=== PATIENT | male | born 1960 | race Caucasian/White ===

== ENCOUNTER 2016-12-10 11:19 | Emergency (ER) | payer BC ==
[2016-12-10 11:32] VITALS: BP 117/87; PULSE 74; TEMP 98.1; BMI 27.5
--- NOTE | 2016-12-10 11:39 | PDOC ---
History of Present Illness - General Chief Complaint: Bite Stated Complaint: STUNG BY BEE Time Seen by Provider: 12/10/16 11:38 - History of Present Illness Initial Comments: 12/10/16 12:35 56 year old healthy male presenting 40 minutes after a bee sting to his posterior right ear. He came to the ED because he had an anaphylactic reaction to the bee sting 15 years ago. He was stung by a bee this time, or so he believes, and only noticed some mild pain and very mild swelling of the lower portion of the back of his ear. Denies SOB, nausea, vomiting, facial swelling, or tongue swelling. 12/10/16 12:41 Past History - Past Medical History Allergies/Adverse Reactions: Allergies Allergy/AdvReac Type Severity Reaction Status Date / Time bee venom protein (honey bee) Allergy Difficulty Verified 12/10/16 11:29 Breathing Home Medications: Ambulatory Orders Epinephrine [Adrenaclick] 0.3 mg IJ ONCE PRN #1 auto.injct 12/10/16 Prednisone [Prednisone 50 MG TABLETS] 50 mg PO DAILY #4 tablet 12/10/16 - Psycho/Social/Smoking Cessation Hx Anxiety: No Suicidal Ideation: No Smoking History: Never smoked Have you smoked in the past 12 months: No Information on smoking cessation initiated: No Hx Alcohol Use: No Drug/Substance Use Hx: No Substance Use Type: None Review of Systems - Review of Systems Constitutional: No: Chills, Diaphoresis, Fever HEENTM: No: Blurred Vision, Tearing, Recent change in vision Respiratory: No: Cough, Shortness of Breath, SOB with Exertion Cardiac (ROS): No: Chest Pain, Edema ABD/GI: No: Abdominal Distended, Constipated, Diarrhea, Nausea, Vomiting : No: Burning, Dysuria, Discharge Musculoskeletal: No: Back Pain, Joint Pain Integumentary: Yes: Lesions, Lumps. No: Bruising, Erythema, Pruritus, Rash Neurological: No: Headache, Numbness, Paresthesia *Physical Exam - Vital Signs Last Vital Signs Temp Pulse Resp BP Pulse Ox 98.1 F 74 18 117/87 100 12/10/16 11:29 12/10/16 11:29 12/10/16 11:29 12/10/16 11:29 12/10/16 11:29 - Physical Exam General Appearance: Yes: Nourished, Appropriately Dressed. No: Apparent Distress HEENT: positive: EOMI, LISETTE, Normal ENT Inspection, Pharynx Normal, Other (5mm in diameter area of swellign behind his right tragus.). negative: Photophobia, Muffled/Hoarse voice, Pharyngeal Erythema, Nasal Congestion, Rhinorrhea Neck: positive: Trachea midline, Normal Thyroid, Supple. negative: Tender, Rigid Respiratory/Chest: positive: Lungs Clear, Normal Breath Sounds. negative: Chest Tender, Respiratory Distress, Accessory Muscle Use Cardiovascular: positive: Regular Rhythm, Regular Rate, S1, S2. negative: Edema , Murmur Gastrointestinal/Abdominal: positive: Normal Bowel Sounds, Flat, Soft. 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 He was given one dose of prednisone 60 in the ED without abnormal resposne and will be sent home with adrenaline autoclick pen and 4 more days of prednisone 50. VSS throughout admisison with repeat pulmonary exam clear and no increased swelling of sting area. 12/10/16 12:36 12/10/16 12:44 12/10/16 12:50 *DC/Admit/Observation/Transfer Diagnosis at time of Disposition: Bee sting - Discharge Dispostion Disposition: HOME Condition at time of disposition: Improved Admit: No - Prescriptions Prescriptions: Prednisone [Prednisone 50 MG TABLETS] 50 mg PO DAILY #4 tablet - Patient Instructions Printed Discharge Instructions: How to Care for an Insect Bite or Sting Additional Instructions: You were seen for a suspected bee sting. We do not believe that you had an allergic reaction to your bee sting. Because of your reaction to insect stings in the past we are sending you home with a prescription of 4 more days of prednisone to be safe. We also sent you home with an adrenaline auto injector incase you are stung by a bee and have facial swelling or trouble breathing. Please follow up with your primary care physician within a week. - Attestations Physician Attestion: I, Dr. Ny Aldana, attest that this document has been prepared under my direction and personally reviewed by me in its entirety. I further attest, that it accurately reflects all work, treatment, procedures and medical decision -making performed by me. 12/10/16 12:54
[2016-12-10] MEDS ORDERED: predniSONE 20 MG TABLET (UD) PO ONE (12:24)
--- NOTE | 2016-12-10 12:24 | PDOC ---
Attending Attestation - Resident Resident Name: Ny Aldana - ED Attending Attestation I have performed the following: I have examined & evaluated the patient, The case was reviewed & discussed with the resident, I agree w/resident's findings & plan, Exceptions are as noted - HPI HPI: 12/10/16 12:23 56-year-old male with no past medical history but be ALLERGIES presents with a bee sting to the right tragus. The patient was outdoors when he felt the sting approximately 45 minutes prior to arrival. Stated he felt some itchiness but denies any other symptoms. Denies chest pain short of breath or facial swelling. Patient came in because he had has prior anaphylaxis in the setting of bee sting. Denies any other symptoms at this time. He was concerning came to the ED. - Physicial Exam PE: 12/10/16 12:23 GENERAL: Awake, alert, and fully oriented, in no acute distress. HEAD: No signs of trauma EYES: PERRLA, EOMI, sclera anicteric, conjunctiva clear ENT: Auricles normal inspection, hearing grossly normal, nares patent, oropharynx clear without exudates. NECK: Normal ROM, supple, no lymphadenopathy, JVD, or masses EXTREMITIES: Normal range of motion, no edema. No clubbing or cyanosis. No cords, erythema, or tenderness NEUROLOGICAL: Cranial nerves II through XII grossly intact. Normal speech, normal gait SKIN: Warm, Dry, normal turgor, no rashes or lesions noted. EAR: slight erythema on Right tragus - Medical Decision Making 12/10/16 12:24 Vital Signs Temp Pulse Resp BP Pulse Ox 98.1 F 74 18 117/87 100 12/10/16 11:29 12/10/16 11:29 12/10/16 11:29 12/10/16 11:29 12/10/16 11:29 There are no signs of anaphylaxis. Patient is otherwise well-appearing. Given his history of anaphylaxis to bee stings, we will prescribe prednisone and adrenaline click. Patient will take Benadryl [id number] as needed. Follow- up with PMD. Return precautions given.
[2016-12-10] MEDS ORDERED: predniSONE 20 MG TABLET (UD) ONE (12:31)
== END 2016-12-10 13:01 | disposition home or self-care (01) ==
LOC: JER 11:19
DX: T63.441A Toxic effect of venom of bees, accidental (unintentional), initial encounter (principal); Y92.9 Unspecified place or not applicable
CPT/HCPCS: 99282-25

== ENCOUNTER 2018-12-20 09:18 | Inpatient (IN) | payer BC ==
[2018-12-20] MEDS ORDERED: ACETAMINOPHEN 1000 MG/100 ML VIAL (NON FORMULARY) IVPB ONE (10:14)
[2018-12-20] MEDS ORDERED: SODIUM CHLORIDE 1,000 ML IV STA ×3 (10:14→22:37)
[2018-12-20] MEDS ORDERED: ACETAMINOPHEN INJECTION 100 ML IVPB ONE (10:45)
[2018-12-20 11:05] LABS: BASO % 0.2 % (0-2.0); EOS % 0.7 % (0-4.5); HEMATOCRIT 41.3 % (35.4-49); HEMOGLOBIN 14.3 GM/dL (11.7-16.9); LYMPH % 8.2 % (8-40); MCH 32.7 pg (25.7-33.7); MCHC 34.5 g/dl (32.0-35.9); MEAN CELL VOLUME 94.8 fl (80-96); MEAN PLT VOLUME 9.1 fl (7.5-11.1); MONO % 5.9 % (3.8-10.2); PLATELET COUNT 190 K/MM3 (134-434); RBC 4.36 M/mm3 (4.00-5.60); RDW 13.2 % (11.9-15.9); WHITE BLOOD COUNT 9.1 K/mm3 (4.0-10.0)
[2018-12-20 11:10] LABS: EPI CELLS 0.7 /HPF (0-5/HPF); HYALINE CASTS 2 /lpf (0-8); URINE APPEARANCE CLEAR; URINE BACTERIA 2.4 /hpf (NEGATIVE); URINE BILIRUBIN NEGATIVE (NEGATIVE); URINE COLOR YELLOW; URINE GLUCOSE (UA) NEGATIVE (NEGATIVE); URINE KETONE NEGATIVE (NEGATIVE); URINE LEUK ESTERASE NEGATIVE (NEGATIVE); URINE NITRITE NEGATIVE (NEGATIVE); URINE PROTEIN NEGATIVE (NEGATIVE); URINE RBC 2 /hpf (0-4); URINE UROBILINOGEN 0.2 mg/dL (0.2-1.0); URINE WBC 1 /hpf (0-5)
--- NOTE | 2018-12-20 11:21 | PDOC ---
History of Present Illness - General History Source: Patient Exam Limitations: No Limitations <Lisha Borrego - Last Filed: 12/20/18 16:26> <SinghIvette - Last Filed: 12/21/18 15:27> - General Chief Complaint: Pain Stated Complaint: Pain Time Seen by Provider: 12/20/18 09:43 Past History - Travel Traveled outside of the country in the last 30 days: No Close contact w/someone who was outside of country & ill: No - Past Medical History COPD: No Other medical history: RT KNEE ARTHRITIS - Immunization History Immunization Up to Date: Yes - Suicide/Smoking/Psychosocial Hx Smoking History: Never smoked Have you smoked in the past 12 months: No Information on smoking cessation initiated: No Hx Alcohol Use: No Drug/Substance Use Hx: No Substance Use Type: None <Danielle Borregoca - Last Filed: 12/20/18 16:26> <Ivette Singh - Last Filed: 12/21/18 15:27> - Past Medical History Allergies/Adverse Reactions: Allergies Allergy/AdvReac Type Severity Reaction Status Date / Time bee venom protein (honey bee) Allergy Difficulty Verified 12/20/18 09:25 Breathing Home Medications: Ambulatory Orders Epinephrine [Adrenaclick] 0.3 mg IJ ONCE PRN #1 auto.injct 12/10/16 Review of Systems - Review of Systems Able to Perform ROS?: Yes Comments:: 12/20/18 10:08 CONSTITUTIONAL: Absent: fever, chills, diaphoresis, generalized weakness, malaise, loss of appetite HEENT: Absent: rhinorrhea, nasal congestion, throat pain, throat swelling, difficulty swallowing, mouth swelling, ear pain, eye pain, visual Changes CARDIOVASCULAR: Absent: chest pain, loss of consciousness, palpitations, irregular heart rate, peripheral edema RESPIRATORY: Absent: cough, shortness of breath, dyspnea with exertion, orthopnea, wheezing, stridor, hemoptysis GASTROINTESTINAL: Present: lower abdominal pain, constipation Absent: abdominal distension, nausea , vomiting, diarrhea, melena, hematochezia GENITOURINARY: Present: dysuria Absent: frequency, urgency, hesitancy, hematuria, flank pain, genital pain MUSCULOSKELETAL: Absent: myalgia, arthralgia, joint swelling SKIN: Absent: rash, itching, pallor HEMATOLOGIC/IMMUNOLOGIC: Absent: easy bleeding, easy bruising, lymphadenopathy, frequent infections ENDOCRINE: Absent: unexplained weight gain, unexplained weight loss, heat intolerance, cold intolerance NEUROLOGIC: Absent: headache, focal weakness or paresthesias, dizziness, unsteady gait, seizure, mental status changes, bladder or bowel incontinence PSYCHIATRIC: Absent: anxiety, depression, suicidal or homicidal ideation, hallucinations. Is the patient limited Thai proficient: No <Lisha Borrego - Last Filed: 12/20/18 16:26> *Physical Exam - Vital Signs Last Vital Signs Temp Pulse Resp BP Pulse Ox 98.5 F 66 16 132/81 99 12/20/18 09:27 12/20/18 09:27 12/20/18 09:27 12/20/18 09:27 12/20/18 09:27 - Physical Exam Comments: 12/20/18 10:09 GENERAL: Well developed, well nourished. Awake and alert. No acute distress. HEENT: Normocephalic, atraumatic. PERRLA, EOMI. No conjunctival pallor. Sclera are non- icteric. Moist mucous membranes. Oropharynx is clear. NECK: Supple. Full ROM. No JVD. Carotid pulses 2+ and symmetric, without bruits. No thyromegaly. No lymphadenopathy. CARDIOVASCULAR: Regular rate and rhythm. No murmurs, rubs, or gallops. Distal pulses are 2+ and symmetric. PULMONARY: No evidence of respiratory distress. Lungs clear to auscultation bilaterally. No wheezing, rales or rhonchi. ABDOMINAL: TTP of the lower abdomen with increased Soft. Non-tender. Non-distended. No rebound or guarding. No organomegaly. Normoactive bowel sounds. MUSCULOSKELETAL Normal range of motion at all joints. No bony deformities or tenderness. No CVA tenderness. EXTREMITIES: No cyanosis. No clubbing. No edema. No calf tenderness. SKIN: Warm and dry. Normal capillary refill. No rashes. No jaundice. NEUROLOGICAL: Alert, awake, appropriate. Cranial nerves 2-12 intact. No deficits to light touch and temperature in face, upper extremities and lower extremities. No motor deficits in the in face, upper extremities and lower extremities. Normoreflexic in the upper and lower extremities. Normal speech. Toes are down- going bilaterally. Gait is normal without ataxia. PSYCHIATRIC: Cooperative. Good eye contact. Appropriate mood and affect. <Danielle Borregoca - Last Filed: 12/20/18 16:26> - Vital Signs Last Vital Signs Temp Pulse Resp BP Pulse Ox 98.5 F 66 16 132/81 99 12/20/18 09:27 12/20/18 09:27 12/20/18 09:27 12/20/18 09:27 12/20/18 09:27 <Ivette Singh - Last Filed: 12/21/18 15:27> ED Treatment Course - LABORATORY CBC & Chemistry Diagram: 12/20/18 10:00 12/20/18 10:00 <Maryam Borregoecca - Last Filed: 12/20/18 16:26> - LABORATORY CBC & Chemistry Diagram: 12/21/18 07:10 12/21/18 07:10 - ADDITIONAL ORDERS Additional order review: Laboratory Results 12/20/18 12/20/18 12/20/18 10:00 10:00 10:00 PT with INR 11.90 INR 1.01 Sodium 140 Potassium 4.1 Chloride 105 Carbon Dioxide 30 Anion Gap 5 L BUN 19.9 H Creatinine 0.8 Est GFR (CKD-EPI)AfAm 114.93 Est GFR (CKD-EPI)NonAf 99.16 Random Glucose 96 Calcium 9.2 Total Bilirubin 0.7 AST 24 ALT 38 Alkaline Phosphatase 75 Total Protein 7.1 Albumin 4.2 Urine Color Yellow Urine Appearance Clear Urine pH 5.0 Ur Specific [place] 1.026 Urine Protein Negative Urine Glucose (UA) Negative Urine Ketones Negative Urine Blood Trace Urine Nitrite Negative Urine Bilirubin Negative Urine Urobilinogen 0.2 Ur Leukocyte Esterase Negative Urine WBC (Auto) 1 Urine RBC (Auto) 2 Urine Casts (Auto) 2 U Epithel Cells (Auto) 0.7 Urine Bacteria (Auto) 2.4 12/20/18 10:00 RBC 4.36 MCV 94.8 MCHC 34.5 RDW 13.2 MPV 9.1 Neutrophils % 85.0 H Lymphocytes % 8.2 Monocytes % 5.9 Eosinophils % 0.7 Basophils % 0.2 - Medications Given in the ED: ED Medications Discontinued Medications Generic Name Dose Route Start Last Admin Trade Name Freq PRN Reason Stop Dose Admin Acetaminophen 1,000 mg 12/20/18 10:14 12/20/18 10:54 Ofirmev Injection - IVPB 12/20/18 10:15 1,000 mg ONCE ONE Administration Sodium Chloride 1,000 mls @ 1,000 mls/hr 12/20/18 10:14 12/20/18 10:54 Normal Saline - IV 12/20/18 11:13 1,000 mls/hr ASDIR STA Administration <Ivette Singh - Last Filed: 12/21/18 15:27> Medical Decision Making - Medical Decision Making 12/20/18 16:19 The patient is a 58 y/o M with PMH of bladder divertiula with repair, presents to the ER with one day of lower abdominal pain, urinary discomfort and constipation. He states that he has been straining to have a bowel movement; but has been unable to have one since yesterday morning. e also states that it hurts to urinate. He states is a family history of diverticulitis. Denies fevers , chills, nausea, vomiting, difficulty breathing, chest pain, frequency, urgency and hematuria A/P: diverticulitis LLQ pain and suprapubic pain on exam labs, CTAP, urine ordered Labs grossly unremarkable CTAP shows diverticulitis with colitis Levo/flagyl ordered for abx Admit to hospitalists Sign out given to Dr. Vanegas <Lisha Borrego - Last Filed: 12/20/18 16:26> - Medical Decision Making 12/20/18 12:55 The patient was seen and evaluated in conjunction with midlevel provider under my direct supervision, ancillary studies were reviewed. I agree with the plan as outlined PHYLLIS Borrego. HPI, workup/dispo as outlined. VS reviewed, wnl. labs and lytes wnl. CT a/p +diverticulitis meds, reassess admit for acute diverticulitis 12/21/18 15:26 <Ivette Singh - Last Filed: 12/21/18 15:27> *DC/Admit/Observation/Transfer - Discharge Dispostion Decision to Admit order: Yes <Lisha Borrego - Last Filed: 12/20/18 16:26> <Ivette Singh - Last Filed: 12/21/18 15:27> Diagnosis at time of Disposition: Diverticulitis - Discharge Dispostion Disposition: HOME Condition at time of disposition: Stable
[2018-12-20 11:26] LABS: INR 1.01 (0.83-1.09); PROTHROMBIN TIME (PATIENT) 11.9 SEC (9.7-13.0)
[2018-12-20 11:27] LABS: ALBUMIN 4.2 g/dl (3.4-5.0); BILIRUBIN,TOTAL 0.7 mg/dL (0.2-1); BLOOD UREA NITROGEN 19.9 mg/dL (7-18); CALCIUM 9.2 mg/dL (8.5-10.1); CREATININE 0.8 mg/dL (0.55-1.3); POTASSIUM 4.1 mmol/L (3.5-5.1); TOT PROT 7.1 g/dl (6.4-8.2)
[2018-12-20] MEDS ORDERED: morphine CARPU-JECT 2 MG/1 ML DISP.SYRIN IVPUSH ONE (16:31)
[2018-12-20] MEDS ORDERED: SODIUM CHLORIDE 1,000 ML IV SCH (17:00)
[2018-12-20] MEDS ORDERED: MORPHINE SULFATE 2 MG/ML VIAL ONE (17:09)
[2018-12-20] MEDS ORDERED: CEFTRIAXONE 2 GM-D5W BAG 2 GM/50 ML BAG IVPB SCH (18:15)
[2018-12-20] MEDS ORDERED: CEFTRIAXONE 1 GM in DEXTROSE 5%-WATER 100 ML IVPB SCH (18:30)
--- NOTE | 2018-12-20 18:30 | PN ---
Teaching Attending Note Name of Resident: Derek Brooks ATTENDING PHYSICIAN STATEMENT I saw and evaluated the patient. I reviewed the resident's note and discussed the case with the resident. I agree with the resident's findings and plan as documented. SUBJECTIVE: CC: Abd pain HPI: 58 y/o man with h/o hemorrhoids, colonic polyps, bladder polyp removal with reconstruction , UTI, OA in knee , who presented with lower abd pain since this am . This Am, he developed lower abd pain while having a BM. stool was hard and last BM was 2 days ago. he felt pressure in suprapubic area as well and urination was difficult but no dysuria. while wiping himself after BM he noticed few drops of blood. He denies any fever or chills, but felt very cold in ER. He denies any diarrhea. He has a h/o polyps removed from his colon ( total of 7) , last colonoscopy was in June and was told it was Nl. Dr. Baker is his GI. He denies diverticulitis before. denies chronic h/o constipation OBJECTIVE: NAD. pleasant and cooperative HEENT: dry MM. No facial droop. no LAP in neck . slightly erythematous oropharynx CV: RRR, no MRG Lungs: CTAB Ext : No edema or erythema. R knee tenderness. No fungal infection in feet. Abd: TTP in suprapubic area, LLQ and RLQ. no rebound tenderness or guarding. hypoactive BS. Neuro : EOMI, round equal pupils, reactive to light , no facial droop. tongue and uvula at mid line. strength 5/5 in upper and lower extremities proximally and distally. Rectal: deferred as pt is in [place]. ASSESSMENT AND PLAN: 58 y/o man with h/o hemorrhoids, colonic polyps, bladder polyp removal with reconstruction , UTI, OA in knee , who presented with lower abd pain since morning of admission. He was found to have acute sigmoid diverticulitis. 1- Sigmoid diverticulitis: no abscess formation, and no microperforation. No signs of sepsis as of now. - received Levaquin and flagyl in ER - will start ceftriaxone and flagyl - order Lactic acid - IVF with d5NS - NPO for now , will advance later - No Drainable collection seen on CT. if condition changes, might need surgical eval - monitor closely 2- L adrenal gland thickening. Unchanged form prior exam. follow as out pt 3- L lung base nodule, slightly larger than before. f/u as out pt 5- DVT PX : lovenox
--- NOTE | 2018-12-20 18:32 | HP ---
CHIEF COMPLAINT: Lower abdominal pain PCP: Dr. kSaggs HISTORY OF PRESENT ILLNESS: The patient is a 58 year old male with PMH significant for hemorrhoids (30 years) and colonic polyps (5 colonoscopies in the past 16 years, 7 polyps removed), and PSH significant for 2x bladder reconstructive surgery in 2005. He presented to the ER from home with complaints of pain in his suprapubic region since 2AM, sudden in onset. He described it as 8/10 in intensity and sharp in quality, constant in nature but varying in intensity (between 3/10 to 8/10). The pain does not radiate anywhere , is aggravated by urination, and there were no alleviating factors noted. Associated symptoms include constipation and dysuria. His last normal bowel movement was 2 days ago, which was soft and brown, and he normally has soft, daily bowel movements. He had one painful bowel movement after the pain started this morning, described as very hard and small in quantity, with no blood noted mixed with stool, but blood noticed upon wiping. He also complains of associated dysuria since the pain began. There is no burning micturation and no pain in the urethra, but instead he feels pain in the suprapubic region, described as originating from the bladder. ER course was notable for: (1) CT AP: sigmoid diverticulitis with edema and phlegmonous change, no abcess. Mild asc & transverse colon diverticulosis (2) Levaquin 750mg and Flagyl 500mg (3) Morphine 2mg IVPUSH (4) N/S @75 Recent Travel: Denies PAST MEDICAL HISTORY: Hemorrhoids (30 years) Colonic polyps, 5 colonoscopies in the past 16 years (last one in June), 7 polyps removed. His GI is doctor Olivia, he has a colonoscopy every 3 years PAST SURGICAL HISTORY: 2x bladder reconstructive surgery in 2006, removal of diverticulum. Dr. Linton is his Urologist. Social History: Smoking: None Alcohol: Socially, wine and beer, few units Drugs: None Work: Wash Worker Family History: 3 Maternal Uncles and Mother suffered from Diverticulitis Father from Lung [place] (was a heavy smoker) Brother of a stroke (age 53) Allergies bee venom protein (honey bee) Allergy (Verified 12/20/18 09:25) Difficulty Breathing HOME MEDICATIONS: Home Medications Medication Instructions Recorded Epinephrine [Adrenaclick] 0.3 mg IJ ONCE PRN #1 auto.injct 12/10/16 Prednisone [Prednisone 50 MG 50 mg PO DAILY #4 tablet 12/10/16 TABLETS] REVIEW OF SYSTEMS CONSTITUTIONAL: Absent: fever, chills, diaphoresis, generalized weakness, malaise, loss of appetite, weight change HEENT: Absent: rhinorrhea, nasal congestion, throat pain, throat swelling, difficulty swallowing, mouth swelling, ear pain, eye pain, visual changes CARDIOVASCULAR: Absent: chest pain, syncope, palpitations, irregular heart rate, lightheadedness , peripheral edema RESPIRATORY: Absent: cough, shortness of breath, dyspnea with exertion, orthopnea, wheezing, stridor, hemoptysis GASTROINTESTINAL:abdominal pain, constipation, hematochezia Absent: abdominal distension, nausea, vomiting, diarrhea, melena GENITOURINARY: dysuria Absent: frequency, urgency, hesitancy, hematuria, flank pain, genital pain MUSCULOSKELETAL: Absent: myalgia, arthralgia, joint swelling, back pain, neck pain SKIN: Absent: rash, itching, pallor HEMATOLOGIC/IMMUNOLOGIC: Absent: easy bleeding, easy bruising, lymphadenopathy, frequent infections ENDOCRINE: Absent: unexplained weight gain, unexplained weight loss, heat intolerance, cold intolerance NEUROLOGIC: Absent: headache, focal weakness or paresthesias, dizziness, unsteady gait, seizure, mental status changes, bladder or bowel incontinence PSYCHIATRIC: Absent: anxiety, depression, suicidal or homicidal ideation, hallucinations. PHYSICAL EXAMINATION Vital Signs - 24 hr 12/20/18 12/20/18 09:27 17:38 Temperature 98.5 F 98.2 F Pulse Rate 66 Pulse Rate [ 83 Left] Respiratory 16 16 Rate Blood Pressure 132/81 Blood Pressure 103/61 [Right] O2 Sat by Pulse 99 98 Oximetry (%) GENERAL: Awake, alert, and fully oriented, in no acute distress. HEAD: Normal with no signs of trauma. EYES: Pupils equal, round and reactive to light, extraocular movements intact, sclera anicteric, conjunctiva clear. No lid lag. EARS, NOSE, THROAT: Ears normal, nares patent, oropharynx clear without exudates. Moist mucous membranes. NECK: Normal range of motion, supple without lymphadenopathy, JVD, or masses. LUNGS: Breath sounds equal, clear to auscultation bilaterally. No wheezes, and no crackles. No accessory muscle use. HEART: Regular rate and rhythm, normal S1 and S2 without murmur, rub or gallop. ABDOMEN: Soft, mild tenderness in suprapubic region, no CVA tenderness, not distended, normoactive bowel sounds, no guarding, no rebound, no masses MUSCULOSKELETAL: Normal range of motion at all joints. No bony deformities or tenderness. No CVA tenderness. UPPER EXTREMITIES: 2+ pulses, warm, well-perfused. No cyanosis. No clubbing. No peripheral edema. LOWER EXTREMITIES: 2+ pulses, warm, well-perfused. No calf tenderness. No peripheral edema. NEUROLOGICAL: Cranial nerves II-XII intact. Normal speech. Normal gait. PSYCHIATRIC: Cooperative. Good eye contact. Appropriate mood and affect. SKIN: Warm, dry, normal turgor, no rashes or lesions noted, normal capillary refill. Laboratory Results - last 24 hr 12/20/18 12/20/18 12/20/18 10:00 10:00 10:00 WBC 9.1 RBC 4.36 Hgb 14.3 Hct 41.3 MCV 94.8 MCH 32.7 MCHC 34.5 RDW 13.2 Plt Count 190 MPV 9.1 Absolute Neuts (auto) 7.8 Neutrophils % 85.0 H Lymphocytes % 8.2 Monocytes % 5.9 Eosinophils % 0.7 Basophils % 0.2 Nucleated RBC % 0 PT with INR 11.90 INR 1.01 Sodium 140 Potassium 4.1 Chloride 105 Carbon Dioxide 30 Anion Gap 5 L BUN 19.9 H Creatinine 0.8 Est GFR (CKD-EPI)AfAm 114.93 Est GFR (CKD-EPI)NonAf 99.16 Random Glucose 96 Calcium 9.2 Total Bilirubin 0.7 AST 24 ALT 38 Alkaline Phosphatase 75 Total Protein 7.1 Albumin 4.2 Urine Color Urine Appearance Urine pH Ur Specific [place] Urine Protein Urine Glucose (UA) Urine Ketones Urine Blood Urine Nitrite Urine Bilirubin Urine Urobilinogen Ur Leukocyte Esterase Urine WBC (Auto) Urine RBC (Auto) Urine Casts (Auto) U Epithel Cells (Auto) Urine Bacteria (Auto) 12/20/18 10:00 WBC RBC Hgb Hct MCV MCH MCHC RDW Plt Count MPV Absolute Neuts (auto) Neutrophils % Lymphocytes % Monocytes % Eosinophils % Basophils % Nucleated RBC % PT with INR INR Sodium Potassium Chloride Carbon Dioxide Anion Gap BUN Creatinine Est GFR (CKD-EPI)AfAm Est GFR (CKD-EPI)NonAf Random Glucose Calcium Total Bilirubin AST ALT Alkaline Phosphatase Total Protein Albumin Urine Color Yellow Urine Appearance Clear Urine pH 5.0 Ur Specific [place] 1.026 Urine Protein Negative Urine Glucose (UA) Negative Urine Ketones Negative Urine Blood Trace Urine Nitrite Negative Urine Bilirubin Negative Urine Urobilinogen 0.2 Ur Leukocyte Esterase Negative Urine WBC (Auto) 1 Urine RBC (Auto) 2 Urine Casts (Auto) 2 U Epithel Cells (Auto) 0.7 Urine Bacteria (Auto) 2.4 ASSESSMENT/PLAN: #Diverticulitis - Ceftriaxone 1gm daily (because of severity (edema and phlegmonous changes) and Flagyl 500mg Q6 (to cover anaerobes) - Lactic Acid - Morphine 2mg Q6. Had some discomfort after first dose, would warn patient before dose and monitor response - Hydrate with D5N #Hx of Polyps - Will continue outpatient F/U with Dr. Baker. No indication for GI consultation at this time. #Hematochezia - Likely due to passage of hard stools, will monitor #FEN - N/S @75 - NPO to rest colon, will advance to clears tomorrow if symptoms improve #DVT PE - Lovenox 40mg Visit type - Emergency Visit Emergency Visit: Yes ED Registration Date: 12/20/18 Care time: The patient presented to the Emergency Department on the above date and was hospitalized for further evaluation of their emergent condition. - New Patient This patient is new to me today: Yes Date on this admission: 12/21/18 - Critical Care Critical Care patient: No ATTENDING PHYSICIAN STATEMENT I saw and evaluated the patient. I reviewed the resident's note and discussed the case with the resident. I agree with the resident's findings and plan as documented. SUBJECTIVE: OBJECTIVE: ASSESSMENT AND PLAN:
[2018-12-20] MEDS ORDERED: MORPHINE SULFATE 2 MG/ML VIAL IVPUSH PRN (18:33)
[2018-12-20] MEDS ORDERED: DEXTROSE 5%-NORMAL SALINE 1,000 ML IV SCH ×2 (18:45→18:53)
--- NOTE | 2018-12-20 20:14 | CON.GI ---
Consult Consult Specialty:: GI: For Dr. Baker who resumes care 12/21 Referred by:: Hospitalist Service Reason for Consultation:: Diverticulitis - History of Present Illness Chief Complaint: Abdominal pain History of Present Illness: 58M admitted through [facility] ER for evaluation of abdominal pain. Mr. Fajardo explains that he was awoken by lower abdominal discomfort around 2AM this morning. He went to bed but in the monring the pain became persistent and more intense, accompanied by diminished appetite and chills prompting his ER eval. In the ER he was noted to be afebrile with normal WBC. CT scan of the abdomen and pelvis with IV contrast revealed sigmoid diverticulitis with phlegmonous changes around the sigmoid. There was a lung nodule noted as well. His temp was 100.3 orally during my exam this evening. he is a patient of Dr. Baker's and Micah explains that Dr. Baker performed colonoscopy on him this past June revealing diverticulosis. he had a prior colonoscopy and he remembers 7 polyps being removed. He denies rectal bleeding and his last bowel movement was 2 days prior and strained. There is no family history of colorectal cancer or other GI malignancy. he was given levaquin and ? ceftriaxone in the ED - History Source History Provided By: Patient, Medical Record - Past Medical History Gastrointestinal: Yes: Diverticulosis, Other (Colon polyps) Musculoskeletal: Yes: Osteoarthritis - Past Surgical History Additional Surgical History: right knee meniscus repair, resection of bladder diverticulum - Alcohol/Substance Use Hx Alcohol Use: No - Smoking History Smoking history: Never smoked Have you smoked in the past 12 months: No - Social History Usual Living Arrangement: With Significant Other ADL: Independent Occupation: Mental [employer] Place of : [facility] History of Recent Travel: No Home Medications - Allergies Allergies/Adverse Reactions: Allergies Allergy/AdvReac Type Severity Reaction Status Date / Time bee venom protein (honey bee) Allergy Difficulty Verified 12/20/18 09:25 Breathing - Home Medications Home Medications: Ambulatory Orders Epinephrine [Adrenaclick] 0.3 mg IJ ONCE PRN #1 auto.injct 12/10/16 Family Disease History - Family Disease History Family Disease History: Other: Father (: 42: Lung Ca (smoker)), Mother ( : 66: complications from CKD), Brother (3, 1 age 53: CVA), Sister (1, alive BCA) Physical Exam-GI Vital Signs: Vital Signs Temperature 100.3 F orally 12/20/18 17:38 Pulse Rate 83 12/20/18 17:38 Respiratory Rate 16 12/20/18 17:38 Blood Pressure 103/61 12/20/18 17:38 O2 Sat by Pulse Oximetry (%) 98 12/20/18 17:38 Constitutional: Yes: Calm Eyes: No: Sclera Icterus Cardiovascular: Yes: Regular Rate and Rhythm Respiratory: Yes: CTA Bilaterally Gastrointestinal Inspection: No: Distention, Scars ...Auscultate: Yes: Normoactive Bowel Sounds ...Palpate: Yes: Guarding (involuntary guarding), Soft, Tenderness (TTP LLQ) ...Percussion: No: Tympanitic Edema: No (No LE edema) Neurological: Yes: Alert Labs: CBC, BMP 12/20/18 10:00 12/20/18 10:00 INR, PTT INR 1.01 (0.83-1.09) 12/20/18 10:00 Imaging - Results Cat Scan: Report Reviewed, Image Reviewed Problem List - Problems (1) Diverticulitis Assessment/Plan: 1st episode of acute uncomplicated sigmoid diverticulitis Significant TTP noted on my exam this evening Advise: NPO IV hydration IV Abx. if continuing fevers, rising WBC, consider blood cultures, ID consult and escalation of antibiotic coverage Surgical consult to follow Added CRP to AM labs Code(s): K57.92 - DVTRCLI OF INTEST, PART UNSP, W/O PERF OR ABSCESS W/O BLEED
[2018-12-20 20:55] VITALS: BMI 29.3
[2018-12-21] MEDS ORDERED: CEFTRIAXONE 1 GM in DEXTROSE 5%-WATER - 50 ML IVPB SCH (00:25)
[2018-12-21] MEDS ORDERED: cefTRIAXone SODIUM 1 GM VIAL ONE ×2 (00:27→09:51)
[2018-12-21] MEDS ORDERED: DEXTROSE 5%-WATER - 50 ML IVPB ONE ×2 (00:27→09:51)
[2018-12-21] MEDS: SODIUM CHLORIDE 1,000 ML IV SCH ×2 (01:34→17:05)
[2018-12-21 08:07] LABS: BASO % 0.1 % (0-2.0); EOS % 0.2 % (0-4.5); HEMOGLOBIN 12.6 GM/dL (11.7-16.9); MCHC 35.1 g/dl (32.0-35.9); MEAN CELL VOLUME 94.1 fl (80-96); MEAN PLT VOLUME 9.2 fl (7.5-11.1); MONO % 3.9 % (3.8-10.2); NEUT % 87.8 % (42.8-82.8); PLATELET COUNT 165 K/MM3 (134-434); RBC 3.82 M/mm3 (4.00-5.60); RDW 12.6 % (11.9-15.9); WHITE BLOOD COUNT 10.7 K/mm3 (4.0-10.0)
[2018-12-21 08:53] LABS: ALBUMIN 3.2 g/dl (3.4-5.0); BILIRUBIN,TOTAL 1.3 mg/dL (0.2-1); BLOOD UREA NITROGEN 10.4 mg/dL (7-18); CALCIUM 8.3 mg/dL (8.5-10.1); CREATININE 0.8 mg/dL (0.55-1.3); POTASSIUM 3.6 mmol/L (3.5-5.1); TOT PROT 5.9 g/dl (6.4-8.2)
[2018-12-21] MEDS: ENOXAPARIN NA (PORCINE) 40 MG/0.4 ML DISP.SYRIN SQ SCH (09:59)
[2018-12-21] MEDS ORDERED: CEFTRIAXONE 1 GM in DEXTROSE 5%-WATER - 100 ML IVPB SCH (10:00)
--- NOTE | 2018-12-21 14:41 | PN ---
Physical Exam: SUBJECTIVE: Patient seen and examined by the bedside. AOx3, in no acute distress. OBJECTIVE: Vital Signs Period Temp Pulse Resp BP Sys/Colon Pulse Ox Last 24 Hr 98.2 F-100.3 F 79-83 16-20 103-121/53-61 98-98 GENERAL: Awake, alert, and fully oriented, in no acute distress. HEAD: Normal with no signs of trauma. EYES: Pupils equal, round and reactive to light, extraocular movements intact, sclera anicteric, conjunctiva clear. No lid lag. EARS, NOSE, THROAT: Ears normal, nares patent, oropharynx clear without exudates. Moist mucous membranes. NECK: Normal range of motion, supple without lymphadenopathy, JVD, or masses. LUNGS: Breath sounds equal, clear to auscultation bilaterally. No wheezes, and no crackles. No accessory muscle use. HEART: Regular rate and rhythm, normal S1 and S2 without murmur, rub or gallop. ABDOMEN: Soft, mild tenderness in suprapubic region, no CVA tenderness, not distended, normoactive bowel sounds, no guarding, no rebound, no masses MUSCULOSKELETAL: Normal range of motion at all joints. No bony deformities or tenderness. No CVA tenderness. UPPER EXTREMITIES: 2+ pulses, warm, well-perfused. No cyanosis. No clubbing. No peripheral edema. LOWER EXTREMITIES: 2+ pulses, warm, well-perfused. No calf tenderness. No peripheral edema. NEUROLOGICAL: Cranial nerves II-XII intact. Normal speech. Normal gait. PSYCHIATRIC: Cooperative. Good eye contact. Appropriate mood and affect. SKIN: Warm, dry, normal turgor, no rashes or lesions noted, normal capillary refill. Laboratory Results - last 24 hr 12/20/18 12/21/18 12/21/18 19:25 03:00 07:10 WBC 10.7 H RBC 3.82 L Hgb 12.6 Hct 36.0 MCV 94.1 MCH 33.0 MCHC 35.1 RDW 12.6 Plt Count 165 MPV 9.2 Absolute Neuts (auto) 9.4 H Neutrophils % 87.8 H Lymphocytes % 8.0 Monocytes % 3.9 Eosinophils % 0.2 Basophils % 0.1 Nucleated RBC % 0 Sodium Potassium Chloride Carbon Dioxide Anion Gap BUN Creatinine Est GFR (CKD-EPI)AfAm Est GFR (CKD-EPI)NonAf Random Glucose Lactic Acid 2.4 H* 0.8 Calcium Magnesium Total Bilirubin AST ALT Alkaline Phosphatase C-Reactive Protein Total Protein Albumin 12/21/18 12/21/18 07:10 07:10 WBC RBC Hgb Hct MCV MCH MCHC RDW Plt Count MPV Absolute Neuts (auto) Neutrophils % Lymphocytes % Monocytes % Eosinophils % Basophils % Nucleated RBC % Sodium 142 Potassium 3.6 Chloride 109 H Carbon Dioxide 27 Anion Gap 6 L BUN 10.4 Creatinine 0.8 Est GFR (CKD-EPI)AfAm 114.93 Est GFR (CKD-EPI)NonAf 99.16 Random Glucose 99 Lactic Acid Calcium 8.3 L Magnesium 2.0 Total Bilirubin 1.3 H AST 15 ALT 30 Alkaline Phosphatase 57 C-Reactive Protein 12.6 H Total Protein 5.9 L Albumin 3.2 L Active Medications Generic Name Dose Route Start Last Admin Trade Name Freq PRN Reason Stop Dose Admin Enoxaparin Sodium 40 mg 12/21/18 10:00 12/21/18 09:59 Lovenox - SQ 40 mg DAILY CHARLES Administration Metronidazole 500 mg in 100 mls @ 100 mls/hr 12/21/18 02:00 12/21/18 10:02 Flagyl 500mg Premixed Ivpb - IVPB 100 mls/hr Q8H-IV CHARLES Administration Dextrose/Sodium Chloride 1,000 mls @ 100 mls/hr 12/20/18 18:53 12/20/18 23:33 D5-Ns - IV 100 mls/hr ASDIR CHARLES Administration Sodium Chloride 1,000 mls @ 75 mls/hr 12/20/18 22:45 12/21/18 01:34 Normal Saline - IV 75 mls/hr ASDIR CHARLES Administration Ceftriaxone Sodium 1 gm/ 50 mls @ 200 mls/hr 12/21/18 00:25 12/21/18 10:02 Dextrose IVPB 200 mls/hr DAILY CHARLES Administration Protocol Morphine Sulfate 2 mg 12/20/18 18:33 Morphine Sulfate IVPUSH Q6H PRN PAIN LEVEL 4 - 6 ASSESSMENT/PLAN: 58 YO M with PMH significant for hemorrhoids (30 years) and colonic polyps (5 colonoscopies, 7 polyps), and bladder reconstructive surgery in 2005. Presented to the ER with sudden onset suprapubic pain since 16 hours 2AM, associated with constipation 3 days and dysuria (pain in bladder). CT showed sigmoid diverticulitis. #Diverticulitis - CRP 12.6 High - GI consult (Dr. Campo): NPO, hydrate, IV Abx, surgery consult, CRP - ID Consult (Dr. Murillo): Continue Abx, trend CRP - Low grade fever overnight 100.3, 100.2 - Ceftriaxone 1gm daily (because of severity (edema and phlegmonous changes) and Flagyl 500mg Q6 (to cover anaerobes) - Lactic Acid 2.4 -> 0.8 - WBC 9.1 -> 10.7 - Morphine 2mg Q6, IV Tylenol PRN for pain (patient felt discomfort after initial dose of morphine in ER) #Hx of Polyps - Will continue outpatient F/U #Hematochezia - Likely due to passage of hard stools, will monitor #FEN - N/S @75 - D5NS @ 100 - NPO to rest colon, will advance to clears tonight if condition improves #DVT PE - Lovenox 40mg Visit type - Emergency Visit Emergency Visit: Yes ED Registration Date: 12/20/18 Care time: The patient presented to the Emergency Department on the above date and was hospitalized for further evaluation of their emergent condition. - New Patient This patient is new to me today: No - Critical Care Critical Care patient: No - Discharge Referral Referred to [facility] Med P.C.: No ATTENDING PHYSICIAN STATEMENT I saw and evaluated the patient. I reviewed the resident's note and discussed the case with the resident. I agree with the resident's findings and plan as documented. SUBJECTIVE: OBJECTIVE: ASSESSMENT AND PLAN:
--- NOTE | 2018-12-21 14:52 | PN ---
Progress Note (short form) - Note Progress Note: ID consult dictated
--- NOTE | 2018-12-21 14:59 | PN ---
Progress Note (short form) - Note Progress Note: ID consult dictated imp/reccd 58 yo man admitted with acute sigmoid diverticulitis constipation extensive divertisulosis no recent antibiotics no diarrhea low grade fever, chills yesterday continue ceftriaxone/flagyl f/u with gi trend crp Problem List - Problems (1) Sigmoid diverticulitis Code(s): K57.32 - DVTRCLI OF LG INT W/O PERFORATION OR ABSCESS W/O BLEEDING
--- NOTE | 2018-12-21 15:09 | PN.GI ---
GI Progress Note Subjective: GI NOte: Dr Campo's consult is appreciated. Jim's pain is improved and he is hungry. Fever to 100.2 noted. - Objective Vital Signs: Vital Signs Temperature 98.4 F 12/21/18 10:00 Pulse Rate 87 12/21/18 10:00 Respiratory Rate 18 12/21/18 10:00 Blood Pressure 119/62 12/21/18 10:00 O2 Sat by Pulse Oximetry (%) 98 12/20/18 21:11 Laboratory Tests 12/20/18 12/20/18 12/21/18 10:00 19:25 03:00 WBC 9.1 Lactic Acid 2.4 H* 0.8 C-Reactive Protein 12/21/18 12/21/18 07:10 07:10 WBC 10.7 H Lactic Acid C-Reactive Protein 12.6 H Constitutional: Calm ...Auscultate: Yes: Hypoactive Bowel Sounds ...Palpate: Yes: Soft, Tenderness (mild LLQ tenderness, no peritoneal signs) Labs: CBC, BMP 12/21/18 07:10 12/21/18 07:10 INR, PTT INR 1.01 (0.83-1.09) 12/20/18 10:00 Assessment/Plan Assessment: - Sigmoid diverticulitis is improving Plan: -- Clear liquids -- Advance diet as tolerated Dr Moran will be covering this weekend Problem List - Problems (1) Sigmoid diverticulitis Code(s): K57.32 - DVTRCLI OF LG INT W/O PERFORATION OR ABSCESS W/O BLEEDING
--- NOTE | 2018-12-21 15:28 | CONS ---
INFECTIOUS DISEASE CONSULTATION DATE OF CONSULTATION: DATE OF DICTATION: 12/21/2018 REQUESTING PHYSICIAN: Hospitalist service. HISTORY: This is a 58-year-old man with a 4-day history of constipation, 2-day history of lower abdominal pain and anorexia. He came to the ER yesterday where he noted he had some chills. He had no fevers at home. He was found to have sigmoid diverticulitis on CAT scan. He was given Levaquin and Flagyl in the emergency room. He is currently on ceftriaxone and Flagyl. He, otherwise, feels well. He does note he has some difficulty urinating and notes that he has not had a bowel movement for the last several days. He has had no vomiting. There is no history of any remote travel. PAST MEDICAL HISTORY: Notable for colon polyps. He has multiple colonoscopies. SURGICAL HISTORY: Notable for bladder reconstruction due to bladder diverticulum with Dr. Montilla. He is scheduled to have right knee arthroscopy. MEDICATIONS: He takes no medications except Motrin as needed. ALLERGIES: He is allergic to CATS and BEES. SOCIAL HISTORY: He does not smoke. Socially drinks some wine and beer. There is no drug use. 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 FAMILY HISTORY: Notable for diverticulitis, lung cancer in his father. His brother who had a stroke. REVIEW OF SYSTEMS: Notable for the lower abdominal discomfort. He has some difficulty urinating right now and some hematochezia. He is not . He lives with his girlfriend. He has had no sick contacts, and he has been going to the [place]. PHYSICAL EXAMINATION: Vital Signs: His maximum temperature is 100.3, current temperature is 98.4, pulse 87, blood pressure 119/62, respiratory rate of 18. HEENT: He is normocephalic. His eyes are anicteric. Neck: Supple. Lungs: Clear to auscultation. Heart: Regular rate and rhythm. Abdomen: Soft, nontender. His lower abdomen exam is notable for bilateral lower abdominal discomfort on exam. There is no rebound or guarding, and he reports that he is not taking any pain medicine. Extremities: Without edema. His labs are notable for a white count of 10.7, hemoglobin 12.6, INR 1, BUN 10, creatinine 0.8, total bilirubin is 1.3, hematocrit is 12.6. Urinalysis is negative. Urine culture is negative. CAT scan findings are notable for mild ascending and transverse and extensive descending and sigmoid colon diverticulosis with sigmoid diverticulitis with perisigmoid edema and phlegmon. There is no associated abscess. No appendicitis. In summary, this is a 58-year-old man with sigmoid diverticulitis. He had no prior antibiotics. He has no diarrhea to suggest any forms of other kinds of colitis. Would agree with ceftriaxone and Flagyl and would follow up for diet and fluids per the primary team in GI. Further recommendations to follow. Nino BUSTOS/[id number]
--- NOTE | 2018-12-21 17:49 | PN ---
Teaching Attending Note Name of Resident: Derek Brooks ATTENDING PHYSICIAN STATEMENT I saw and evaluated the patient. I reviewed the resident's note and discussed the case with the resident. I agree with the resident's findings and plan as documented. SUBJECTIVE: No fever or chills. No SHEN . cont to have lower abd pain. no BM . NO N/V. had fever last night OBJECTIVE: NAD. CV: RRR, no MRG Lungs: CTAB Ext : No edema or erythema. Abd: TTP in suprapubic area, LLQ and RLQ. no rebound tenderness or guarding. NL BS ASSESSMENT AND PLAN: 58 y/o man with h/o hemorrhoids, colonic polyps, bladder polyp removal with reconstruction , UTI, OA in knee , who presented with lower abd pain since morning of admission. He was found to have acute sigmoid diverticulitis. 1- Sigmoid diverticulitis: improved. fever last night but within 24 hour of starting abx -cont ceftriaxone and flagyl -clear diet - change IVF to NS 2- L adrenal gland thickening. Unchanged form prior exam. follow as out pt 3- L lung base nodule, slightly larger than before. f/u as out pt 5- DVT PX : lovenox
[2018-12-21] MEDS ORDERED: SODIUM CHLORIDE 1,000 ML IV SCH (18:00)
[2018-12-21] MEDS: ACETAMINOPHEN 1000 MG/100 ML VIAL (NON FORMULARY) IVPB PRN (20:28)
[2018-12-22 08:05] LABS: BASO % 0.2 % (0-2.0); HEMATOCRIT 33.3 % (35.4-49); HEMOGLOBIN 11.7 GM/dL (11.7-16.9); LYMPH % 10.7 % (8-40); MCH 33.3 pg (25.7-33.7); MEAN CELL VOLUME 95.1 fl (80-96); MEAN PLT VOLUME 8.9 fl (7.5-11.1); NEUT % 82.1 % (42.8-82.8); PLATELET COUNT 142 K/MM3 (134-434); RDW 12.9 % (11.9-15.9); WHITE BLOOD COUNT 7.7 K/mm3 (4.0-10.0)
[2018-12-22 08:39] LABS: BILIRUBIN,DIRECT 0.3 mg/dL (0.0-0.2); BILIRUBIN,TOTAL 1.1 mg/dL (0.2-1); BLOOD UREA NITROGEN 7.8 mg/dL (7-18); CALCIUM 8.3 mg/dL (8.5-10.1); CREATININE 0.7 mg/dL (0.55-1.3); POTASSIUM 3.5 mmol/L (3.5-5.1); TOT PROT 5.7 g/dl (6.4-8.2)
[2018-12-22] MEDS ORDERED: DEXTROSE 5%-WATER 100 ML IVPB ONE (09:25)
[2018-12-22] MEDS: CEFTRIAXONE 2 GM in DEXTROSE 5%-WATER 100 ML IVPB SCH (09:41)
[2018-12-22] MEDS: ENOXAPARIN NA (PORCINE) 40 MG/0.4 ML DISP.SYRIN SQ SCH (09:43)
[2018-12-22] MEDS ORDERED: DOCUSATE NA 100 MG/10 ML UNIT-DOSE CUPS PO PRN (10:31)
--- NOTE | 2018-12-22 11:03 | PN ---
Physical Exam: SUBJECTIVE: Patient seen and examined by the bedside. AOx3, in no acute distress. OBJECTIVE: Vital Signs Period Temp Pulse Resp BP Sys/Colon Pulse Ox Last 24 Hr 98.2 F 76 18 114/68 GENERAL: Awake, alert, and fully oriented, in no acute distress. HEAD: Normal with no signs of trauma. EYES: Pupils equal, round and reactive to light, extraocular movements intact, sclera anicteric, conjunctiva clear. No lid lag. EARS, NOSE, THROAT: Ears normal, nares patent, oropharynx clear without exudates. Moist mucous membranes. NECK: Normal range of motion, supple without lymphadenopathy, JVD, or masses. LUNGS: Breath sounds equal, clear to auscultation bilaterally. No wheezes, and no crackles. No accessory muscle use. HEART: Regular rate and rhythm, normal S1 and S2 without murmur, rub or gallop. ABDOMEN: Soft, mild tenderness in suprapubic region, no CVA tenderness, not distended, normoactive bowel sounds, no guarding, no rebound, no masses MUSCULOSKELETAL: Normal range of motion at all joints. No bony deformities or tenderness. No CVA tenderness. UPPER EXTREMITIES: 2+ pulses, warm, well-perfused. No cyanosis. No clubbing. No peripheral edema. LOWER EXTREMITIES: 2+ pulses, warm, well-perfused. No calf tenderness. No peripheral edema. NEUROLOGICAL: Cranial nerves II-XII intact. Normal speech. Normal gait. PSYCHIATRIC: Cooperative. Good eye contact. Appropriate mood and affect. SKIN: Warm, dry, normal turgor, no rashes or lesions noted, normal capillary refill. Laboratory Results - last 24 hr 12/22/18 12/22/18 07:20 07:20 WBC 7.7 RBC 3.50 L Hgb 11.7 Hct 33.3 L MCV 95.1 MCH 33.3 MCHC 35.0 RDW 12.9 Plt Count 142 MPV 8.9 Absolute Neuts (auto) 6.3 Neutrophils % 82.1 Lymphocytes % 10.7 D Monocytes % 6.0 Eosinophils % 1.0 D Basophils % 0.2 Nucleated RBC % 0 Sodium 142 Potassium 3.5 Chloride 109 H Carbon Dioxide 27 Anion Gap 7 L BUN 7.8 Creatinine 0.7 Est GFR (CKD-EPI)AfAm 121.41 Est GFR (CKD-EPI)NonAf 104.76 Random Glucose 96 Calcium 8.3 L Total Bilirubin 1.1 H Direct Bilirubin 0.3 H AST 13 L ALT 25 Alkaline Phosphatase 57 C-Reactive Protein 15.2 H Total Protein 5.7 L Albumin 3.0 L Active Medications Generic Name Dose Route Start Last Admin Trade Name Freq PRN Reason Stop Dose Admin Acetaminophen 1,000 mg 12/21/18 14:37 12/21/18 20:28 Ofirmev Injection - IVPB 1,000 mg Q6H PRN Administration PAIN LEVEL 4 - 6 Docusate Sodium 200 mg 12/22/18 10:31 Colace Liquid - PO DAILY PRN CONSTIPATION Enoxaparin Sodium 40 mg 12/21/18 10:00 12/22/18 09:43 Lovenox - SQ Not Given DAILY CHARLES Metronidazole 500 mg in 100 mls @ 100 mls/hr 12/21/18 02:00 12/22/18 09:39 Flagyl 500mg Premixed Ivpb - IVPB 100 mls/hr Q8H-IV CHARLES Administration Ceftriaxone Sodium 2 gm/ 100 mls @ 200 mls/hr 12/22/18 10:00 12/22/18 09:41 Dextrose IVPB 200 mls/hr DAILY CHARLES Administration Protocol Morphine Sulfate 2 mg 12/20/18 18:33 Morphine Sulfate IVPUSH Q6H PRN PAIN LEVEL 4 - 6 ASSESSMENT/PLAN: 58 YO M with PMH significant for hemorrhoids (30 years), colonic polyps (5 colonoscopies, 7 polyps), and bladder reconstructive surgery in 2005. Presented to the ER with sudden onset suprapubic pain for the past 16 hours, associated with constipation and dysuria (pain in bladder). He was admitted for diverticulitis. #Diverticulitis - CRP 12.6 -> 15.2 - Ceftriaxone upped form 1gm to 2gm, Flagyl 500mg Q6 (to cover anaerobes) - Morphine 2mg Q6, IV Tylenol PRN for pain - No fever overnight, WBC 7.7 - GI consult (Dr. Campo): NPO, hydrate, IV Abx, surgery consult, CRP - ID Consult (Dr. Murillo): Continue Abx, trend CRP #Constipation - Colace 200mg liquid PO #Hx of Polyps - Will continue outpatient F/U #Hematochezia - Likely due to passage of hard stools, will monitor #FEN - Seems to be tolerating clears, will advance to full liquid for dinner tonight #DVT PE - Lovenox 40mg Visit type - Emergency Visit Emergency Visit: Yes ED Registration Date: 12/20/18 Care time: The patient presented to the Emergency Department on the above date and was hospitalized for further evaluation of their emergent condition. - New Patient This patient is new to me today: No - Critical Care Critical Care patient: No - Discharge Referral Referred to [facility] No ATTENDING PHYSICIAN STATEMENT I saw and evaluated the patient. I reviewed the resident's note and discussed the case with the resident. I agree with the resident's findings and plan as documented. SUBJECTIVE: OBJECTIVE: ASSESSMENT AND PLAN:
--- NOTE | 2018-12-22 11:06 | PN ---
Teaching Attending Note Name of Resident: Derek Brooks ATTENDING PHYSICIAN STATEMENT I saw and evaluated the patient. I reviewed the resident's note and discussed the case with the resident. I agree with the resident's findings and plan as documented. SUBJECTIVE: No fever or chills. No SHEN , no SOB or CP . Abd pain last night required IV tylenol . this am , he feels better with minimal suprapubic pain NO BM since admission . tolerated liquid diet. No vomiting . OBJECTIVE: NAD. CV: RRR, no MRG Lungs: CTAB Ext : No edema or erythema. Abd: TTP in suprapubic area. Nl BS. ASSESSMENT AND PLAN: 58 y/o man with h/o hemorrhoids, colonic polyps, bladder polyp removal with reconstruction , UTI, OA in knee , who presented with lower abd pain since morning of admission. He was found to have acute sigmoid diverticulitis. 1- Sigmoid diverticulitis: improved. No fever last night. tolerated diet. - cont ceftriaxone and flagyl - advance diet to full liquids - add colace - dc IVF in am 2- L adrenal gland thickening. Unchanged form prior exam. follow as out pt 3- L lung base nodule, slightly larger than before. f/u as out pt 5- DVT PX : lovenox dispo : hopefully can advance to regular diet tomorrow . will evaluate labs and clinical condition and will decide on timing of PO Abx
--- NOTE | 2018-12-22 11:57 | PN ---
Progress Note (short form) - Note Progress Note: less abdominal pain, no fevers notes he is getting a cold sore and would like to take his valtrex ( he has it with him) Vital Signs Period Temp Pulse Resp BP Sys/Colon Pulse Ox Last 24 Hr 98.2 F 76 18 114/68 cor-rrr lungs clear _small blister upper lip abd soft,less tenderness to palpation ext no edema CBC, BMP 12/22/18 07:20 12/22/18 07:20 Current Medications Acetaminophen (Ofirmev Injection -) 1,000 mg IVPB Q6H PRN PRN Reason: PAIN LEVEL 4 - 6 Last Admin: 12/21/18 20:28 Dose: 1,000 mg Docusate Sodium (Colace Liquid -) 200 mg PO DAILY PRN PRN Reason: CONSTIPATION Enoxaparin Sodium (Lovenox -) 40 mg SQ DAILY CHARLES Last Admin: 12/22/18 09:43 Dose: Not Given Metronidazole (Flagyl 500mg Premixed Ivpb -) 500 mg in 100 mls @ 100 mls/hr IVPB Q8H-IV CHARLES Last Admin: 12/22/18 09:39 Dose: 100 mls/hr Ceftriaxone Sodium 2 gm/ (Dextrose) 100 mls @ 200 mls/hr IVPB DAILY CHARLES; Protocol Last Admin: 12/22/18 09:41 Dose: 200 mls/hr Morphine Sulfate (Morphine Sulfate) 2 mg IVPUSH Q6H PRN PRN Reason: PAIN LEVEL 4 - 6 a/p acute sigmoid diverticulitis still witn pain 6 of 10 if okay for pills would let him take his valtrex ( he has it with him) trend crp continue rocephin/flagyl leukocytosis resolved Problem List - Problems (1) Sigmoid diverticulitis Code(s): K57.32 - DVTRCLI OF LG INT W/O PERFORATION OR ABSCESS W/O BLEEDING
--- NOTE | 2018-12-22 14:20 | PN.GI ---
GI Progress Note Subjective: coverage for Dr Baker abdominal pain is koki, no nasuea,vomiting and fever, tolerating liquids - Objective Vital Signs: Vital Signs Temperature 98.2 F 12/22/18 10:00 Pulse Rate 76 12/22/18 10:00 Respiratory Rate 18 12/22/18 10:00 Blood Pressure 114/68 12/22/18 10:00 O2 Sat by Pulse Oximetry (%) 98 12/20/18 21:11 Constitutional: Well Nourished Eyes: Yes: Conjunctiva Clear HENT: Yes: Atraumatic Neck: Yes: Supple Cardiovascular: Yes: Regular Rate and Rhythm Respiratory: Yes: CTA Bilaterally ...Palpate: Yes: Soft, Tenderness (--llq less). No: Firm/Rigid, Guarding, Hepatomegaly, Splenomegaly Labs: CBC, BMP 12/22/18 07:20 12/22/18 07:20 INR, PTT INR 1.01 (0.83-1.09) 12/20/18 10:00 Problem List - Problems (1) Sigmoid diverticulitis Assessment/Plan: --resolving R> advance to low fiber lactose free diet made aware to follow up with Dr Fink for colonoscopy in 6 weeks Code(s): K57.32 - DVTRCLI OF LG INT W/O PERFORATION OR ABSCESS W/O BLEEDING
[2018-12-22] MEDS: ACETAMINOPHEN 1000 MG/100 ML VIAL (NON FORMULARY) IVPB PRN ×2 (14:28→21:56)
[2018-12-23 07:35] LABS: BASO % 0.2 % (0-2.0); EOS % 1.5 % (0-4.5); HEMATOCRIT 34.1 % (35.4-49); LYMPH % 9.6 % (8-40); MCH 33.1 pg (25.7-33.7); MCHC 35.1 g/dl (32.0-35.9); MEAN CELL VOLUME 94.2 fl (80-96); MONO % 6.3 % (3.8-10.2); NEUT % 82.4 % (42.8-82.8); PLATELET COUNT 158 K/MM3 (134-434); RBC 3.62 M/mm3 (4.00-5.60); WHITE BLOOD COUNT 6.2 K/mm3 (4.0-10.0)
[2018-12-23] MEDS ORDERED: ACETAMINOPHEN 325 MG TABLET (FP) PO PRN (07:40)
[2018-12-23] MEDS ORDERED: DEXTROSE 5%-WATER 100 ML IVPB ONE (10:57)
[2018-12-23] MEDS: ENOXAPARIN NA (PORCINE) 40 MG/0.4 ML DISP.SYRIN SQ SCH (11:03)
[2018-12-23] MEDS: CEFTRIAXONE 2 GM in DEXTROSE 5%-WATER 100 ML IVPB SCH (11:04)
--- NOTE | 2018-12-23 13:08 | PN ---
Progress Note (short form) - Note Progress Note: still elias residual abdominal discomfort improving no dysuria Vital Signs Period Temp Pulse Resp BP Sys/Colon Pulse Ox Last 24 Hr 98.1 F-98.2 F 68-70 16- 113-126/65-78 98 cor-rrr lungs clear abd firm, minimal LLQ and suprpubic discomfort ext no edema CBC, BMP 12/23/18 07:06 12/22/18 07:20 Microbiology 12/20/18 10:00 Urine - Urine Clean Catch Urine Culture - Final NO GROWTH OBTAINED Laboratory Tests 12/21/18 12/22/18 12/23/18 07:10 07:20 07:06 C-Reactive Protein 12.6 H 15.2 H 10.6 H Current Medications Acetaminophen (Tylenol -) 650 mg PO Q6H PRN PRN Reason: PAIN Docusate Sodium (Colace Liquid -) 200 mg PO DAILY PRN PRN Reason: CONSTIPATION Enoxaparin Sodium (Lovenox -) 40 mg SQ DAILY CHARLES Last Admin: 12/23/18 11:03 Dose: 40 mg Metronidazole (Flagyl 500mg Premixed Ivpb -) 500 mg in 100 mls @ 100 mls/hr IVPB Q8H-IV CHARLES Last Admin: 12/23/18 11:04 Dose: 100 mls/hr Ceftriaxone Sodium 2 gm/ (Dextrose) 100 mls @ 200 mls/hr IVPB DAILY CHARLES; Protocol Last Admin: 12/23/18 11:04 Dose: 200 mls/hr a/p acute diverticulitis-improving crp still elevated would continue iv antibiotics another day before transitioning to po - bactrim ds 1 po bid and flagyl 500 tid- for another 7 days day #3 ceftriaxone/flagyl today repeat crp in am, should continue to trend down prior to discharge along with improvement in abdominal pain Problem List - Problems (1) Sigmoid diverticulitis Code(s): K57.32 - DVTRCLI OF LG INT W/O PERFORATION OR ABSCESS W/O BLEEDING
--- NOTE | 2018-12-23 14:07 | PN ---
Progress Note (short form) - Note Progress Note: Subjective: abd pain 3/10 , tolerated soft diet . No N/V or fever . 2 loose stools yesterday Objective: Vital Signs: Last Vital Signs Temp Pulse Resp BP Pulse Ox 98.1 F 68 16 113/65 98 12/23/18 05:00 12/23/18 05:00 12/23/18 05:00 12/23/18 05:00 12/22/18 21:00 Laboratory Results - last 24 hr 12/23/18 12/23/18 07:06 07:06 WBC 6.2 RBC 3.62 L Hgb 12.0 Hct 34.1 L MCV 94.2 MCH 33.1 MCHC 35.1 RDW 13.0 Plt Count 158 MPV 9.0 Absolute Neuts (auto) 5.1 Neutrophils % 82.4 Lymphocytes % 9.6 Monocytes % 6.3 Eosinophils % 1.5 Basophils % 0.2 Nucleated RBC % 0 C-Reactive Protein 10.6 H Physical Exam: NAD. CV: RRR, no MRG Lungs: CTAB Ext : No edema or erythema. Abd: minimal TTP in suprapubic area. Nl BS. ASSESSMENT AND PLAN: 58 y/o man with h/o hemorrhoids, colonic polyps, bladder polyp removal with reconstruction , UTI, OA in knee , who presented with lower abd pain since morning of admission. He was found to have acute sigmoid diverticulitis. 1- Sigmoid diverticulitis: improved. - cont ceftriaxone and flagyl - soft diet, low fiber - dc IVF - dc colace - repeat CRP 2- L adrenal gland thickening. Unchanged form prior exam. follow as out pt 3- L lung base nodule, slightly larger than before. f/u as out pt 5- DVT PX : lovenox dispo :d/w ID , will need one more days duncan IV abx . dc home tomorrow Visit type - Emergency Visit Emergency Visit: Yes ED Registration Date: 12/20/18 Care time: The patient presented to the Emergency Department on the above date and was hospitalized for further evaluation of their emergent condition. - New Patient This patient is new to me today: No - Critical Care Critical Care patient: No
[2018-12-23] MEDS: ACYCLOVIR 200 MG CAPSULE PO SCH ×2 (14:47→21:38)
[2018-12-24] MEDS: ACYCLOVIR 200 MG CAPSULE PO SCH (06:50)
[2018-12-24] MEDS ORDERED: DEXTROSE 5%-WATER 100 ML IVPB ONE (09:48)
[2018-12-24] MEDS: CEFTRIAXONE 2 GM in DEXTROSE 5%-WATER 100 ML IVPB SCH (09:53)
[2018-12-24] MEDS: ENOXAPARIN NA (PORCINE) 40 MG/0.4 ML DISP.SYRIN SQ SCH (09:54)
--- NOTE | 2018-12-24 12:17 | PN ---
Progress Note (short form) - Note Progress Note: feels better minimal pain tolerating diet Vital Signs Period Temp Pulse Resp BP Sys/Colon Pulse Ox Last 24 Hr 98 F-98.5 F 66-71 16-19 132-136/76-87 98 cor-rrr lungs clear abd soft,+bs, minimal LLQ tenderness to palpation ext no edema CBC, BMP 12/23/18 07:06 12/22/18 07:20 Microbiology 12/20/18 10:00 Urine - Urine Clean Catch Urine Culture - Final NO GROWTH OBTAINED a/p acute diverticulitis-improving crp trending down- day #4 ceftriaxone/flagyl can switch to po bactrim 1 ds po bid with flagyl 500 tid for another 7 days f/u with dr erwin would hold off on TKR in December until GI issues are resolved Problem List - Problems (1) Sigmoid diverticulitis Code(s): K57.32 - DVTRCLI OF LG INT W/O PERFORATION OR ABSCESS W/O BLEEDING
--- NOTE | 2018-12-24 12:30 | PN ---
Teaching Attending Note Name of Resident: Phyllis Vaengas ATTENDING PHYSICIAN STATEMENT I saw and evaluated the patient. I reviewed the resident's note and discussed the case with the resident. I agree with the resident's findings and plan as documented. SUBJECTIVE: No fever or chills. abd painis 1-2 /10 . no N/V. straining with BM. no diarrhea OBJECTIVE: NAD. CV: RRR, no MRG Lungs: CTAB Ext : No edema or erythema. Abd: minimal TTP in suprapubic area. Nl BS. ASSESSMENT AND PLAN: 58 y/o man with h/o hemorrhoids, colonic polyps, bladder polyp removal with reconstruction , UTI, OA in knee , who presented with lower abd pain since morning of admission. He was found to have acute sigmoid diverticulitis. 1- Sigmoid diverticulitis:much improved. - will change to bactrim and flagyl x 7 more days - avoid constipation as out pt , will give colace PRN - diet as tolerated , low fibber for now _ CRP trended down 2- L adrenal gland thickening. Unchanged form prior exam. follow as out pt. patient was informed 3- L lung base nodule, slightly larger than before. f/u as out pt . will refer to pulm. he is aware dc home . f/u with PCP , pulm, and GI blood work CBC, CMP in 1 week. all above discussed
[2018-12-24 15:00] VITALS: BP 135/79; PULSE 73; TEMP 98.4
--- NOTE | 2018-12-24 17:51 | DS ---
Physical Exam: SUBJECTIVE: Patient seen and examined. no event overnight just cramp with bowel movement OBJECTIVE: No acute distress observed Vital Signs Period Temp Pulse Resp BP Sys/Colon Pulse Ox Last 24 Hr 98 F-98.5 F 66-73 16-19 132-136/76-87 98-98 PHYSICAL EXAM GENERAL: The patient is awake, alert, and fully oriented, in no acute distress. HEAD: Normal with no signs of trauma. EYES: PERRL, extraocular movements intact, sclera anicteric, conjunctiva clear. ENT: Ears normal, nares patent, oropharynx clear without exudates, moist mucous membranes. NECK: Trachea midline, full range of motion, supple. LUNGS: Breath sounds equal, clear to auscultation bilaterally, no wheezes, no crackles, no accessory muscle use. HEART: Regular rate and rhythm, S1, S2 without murmur, rub or gallop. ABDOMEN: Soft, mild tenderness, nondistended, normoactive bowel sounds, no guarding, no rebound, no hepatosplenomegaly, no masses. EXTREMITIES: 2+ pulses, warm, well-perfused, no edema. NEUROLOGICAL: Cranial nerves II through XII grossly intact. Normal speech, gait not observed. PSYCH: Normal mood, normal affect. SKIN: Warm, dry, normal turgor, no rashes or lesions noted. LABS Laboratory Results - last 24 hr 12/24/18 Mild ascending and transverse and extensive descending and sigmoid colon diverticulosis with CT findings of sigmoid diverticulitis coupled with extensive perisigmoid edema and phlegmonous changes however without walled off collection/abscess at this time. No free peritoneal air seen. No CT evidence of appendicitis. Left adrenal gland thickening unchanged since the prior exam of 2017 statistically likely hyperplasia. If indicated MRI may be obtained for further evaluation. 4 mm left lung base nodule, minimally more prominent than 2017 at which time it measured 3 mm. Follow-up CT scan in 6 months is suggested. 06:40 C-Reactive Protein 6.0 H HOSPITAL COURSE: Date of Admission:12/20/18 The patient is a 58 year old male with PMH significant for hemorrhoids (30 years ) and colonic polyps (5 colonoscopies in the past 16 years, 7 polyps removed), and PSH significant for 2x bladder reconstructive surgery in 2005. He presented to the ER from home with complaints of pain in his suprapubic region since 2AM, sudden in onset. In ED, patient received a CT scan that confirmed the diagnosis of diverticulitis. He was started on ceftrioxone and flagyl IV, IVF, morphine for pain control and NPO for bowel rest. He was seen by GI and ID who supported our plan and recommended trending CRP. Patient refused DVT PPX.Symptoms of diverticulitis have improved and patient was switched to Bactrim and flagyl for 7 days. GI recommended follow up colonoscopy in [address] Fink for futher evalution. Patient is advised to see his PCP in a week for flagyl side effect monitoring, a well digger for enlarging Left lung nodule on CT scan with a follow up CT in 6 months for Left adrenal thickening finding. Date of Discharge: 12/24/18 Minutes to complete discharge: 35 Discharge Summary Reason For Visit: DIVERTICULITIS Condition: Improved - Instructions Diet, Activity, Other Instructions: You came into the emergency room with symptoms of lower abdominal pain and was admitted for diverticulitis.A CT scan of your abdomen was done and left adrenal gland thickening unchanged since prior exam in 2017 and a 4 mm left lung enlarging lung nodule from 3mm in 2017 also. You will need a follow up CT scan in 6 months for monitoring. and pulmonary follow up Your symptoms have improved significantly and you are stable to be discharged home. Medications You will be going home with some new medications: Bactrim 1 DS PO twice a day starting tomorrow through december 31, 2018 Flagyl 500 mg three times a day beginning tonight through december 31, 2018 Follow up Please follow up with your primary care physician Dr Skaggs, in one week Please follow up with Dr Fink for a colonoscopy, in six weeks Please follow up with the well digger Dr Jaramillo, in one week. for the lung nodule Please obtain follow up CT chest/abdomen scan for the adrenal and chest abnormalities in 6 months. *if you begin to have worsening abdominal pains, fevers, vomiting, chest pains please return to the emergency room immediately you need blood work CBC , CMP i n 1 week avoid constipation . take colace as needed for constipation low fiber and low lactose diet Referrals: Kenyon Jaramillo MD [Staff Physician] - 1 Week (Enlarging right lung nodule) Alexx Baker MD [Staff Physician] - 1 Week Celestino Skaggs MD [Primary Care Provider] - 1 Week Disposition: HOME - Home Medications Comprehensive Discharge Medication List: Ambulatory Orders Epinephrine [Adrenaclick] 0.3 mg IJ ONCE PRN #1 auto.injct 12/10/16 Docusate Sodium [Colace -] 100 mg PO DAILY PRN #30 capsule 12/24/18 Sulfamethoxazole/Trimethoprim [Bactrim Ds -] 1 tab PO BID #14 tablet 12/24/18 metroNIDAZOLE [Flagyl -] 500 mg PO TID #21 tablet 12/24/18 metroNIDAZOLE [Flagyl -] 500 mg PO TID 7 Days tablet 12/24/18 This patient is new to me today: Yes Date on this admission: 12/24/18 Emergency Visit: Yes ED Registration Date: 12/20/18 Care time: The patient presented to the Emergency Department on the above date and was hospitalized for further evaluation of their emergent condition. Critical Care patient: No - Discharge Referral Referred to [facility] Med [facility].: No ATTENDING PHYSICIAN STATEMENT I saw and evaluated the patient. I reviewed the resident's note and discussed the case with the resident. I agree with the resident's findings and plan as documented. SUBJECTIVE: OBJECTIVE: ASSESSMENT AND PLAN:
== END 2018-12-24 16:59 | disposition home or self-care (01) | DRG 392 ==
LOC: JER 09:18 → JERBED 16:24 → J6S 18:22
PROVIDERS: ADMIT Internal Medicine; ATTEND Internal Medicine
DX: K57.32 Diverticulitis of large intestine without perforation or abscess without bleeding (principal); K92.1 Melena; R91.8 Other nonspecific abnormal finding of lung field; D72.829 Elevated white blood cell count, unspecified; K59.00 Constipation, unspecified
CPT/HCPCS: 36415; 74177-TC; 80048; 80053; 80076; 81003; 83605; 83735; 85025; 85610; 86140; 87086; 99282-25; J0131; J7030

== ENCOUNTER 2020-12-28 23:33 | Emergency (ER) | payer BC ==
[2020-12-28 23:40] VITALS: BP 145/99; PULSE 60; TEMP 97.8; BMI 28.1
== END 2020-12-29 00:05 | disposition left against medical advice (07) ==
LOC: FER 23:33
DX: H53.9 Unspecified visual disturbance (principal)
CPT/HCPCS: 99283-25